=== PATIENT | male | born 1935 | race Two or more races ===

== ENCOUNTER 2023-01-10 14:56 | Emergency (ER) | payer OTHER ==
[~2023-01-10] VITALS: Ht 182.9 cm; Wt 77.1 kg
== END 2023-01-10 19:32 | disposition home or self-care (01) ==
LOC: ER 14:56
DX: R60.0 Localized edema (principal)

== ENCOUNTER 2023-01-11 08:43 | Emergency (ER) | payer OTHER ==
[~2023-01-11] VITALS: Ht 172.7 cm; Wt 71.2 kg
== END 2023-01-11 17:51 ==
LOC: ER 08:43
DX: I73.89 Other specified peripheral vascular diseases (principal); L97.519 Non-pressure chronic ulcer of other part of right foot with unspecified severity; R60.0 Localized edema